=== PATIENT | male | born 1980 | race Caucasian/White ===

== ENCOUNTER 2017-05-14 16:03 | Emergency (ER) | payer MEDICAID ==
[2017-05-14] MEDS ORDERED: LORazepam 2 MG/ML INJ IVP ONE (16:28)
--- NOTE | 2017-05-14 16:28 | EDPHY ---
H & P Time Seen by Provider: 05/14/17 16:14 HPI/ROS: CHIEF COMPLAINT: "I can't see" HISTORY OF PRESENT ILLNESS: This patient is a 36 year old male with alcoholism presents for medical clearance from the [facility]. He was seen at [facility] this morning for alcohol withdrawal seizures. Once he left the ED, he starting drinking alcohol again. A family member took him to the [facility] but was asked to bring him back to an emergency department for further medical evaluation and clearance. The patient continues to repeat "I can't see", but is unable to describe this further. The difficulty with his vision began a few minutes ago. No DEUTSCH or recent head injury. REVIEW OF SYSTEMS: Constitutional: No fever, no chills Eyes: No visual changes ENT: No sore throat Respiratory: No cough, no shortness of breath Cardiac: No chest pain Gastrointestinal: No nausea, no vomiting, no abdominal pain Genitourinary: No hematuria, no dysuria Musculoskeletal: No leg pain or swelling Skin: No rash Neurological: No headache, no weakness Psychiatric: No depression Past Medical/Surgical History: Alcohol abuse, withdrawal seizures. Social History: Current smoker. Smoking Status: Current some day smoker Physical Exam: General Appearance: Alert, smells of alcohol Eyes: PERRL, EOMI, no conjunctival pallor or injection ENT, Mouth: Mucous membranes moist Neck: Normal inspection Respiratory: Lungs are clear to auscultation Cardiovascular: Regular rate and rhythm Gastrointestinal: Abdomen is soft and non- tender Neurological: A&O, motor 5/5, sensory intact to light touch Skin: Warm and dry, no rash Extremities: Nontender, no pedal edema Psychiatric: Mood and affect normal Constitutional: Initial Vital Signs Temperature (C) 36.5 C 05/14/17 16:03 Heart Rate 92 05/14/17 16:03 Respiratory Rate 16 05/14/17 16:03 Blood Pressure 146/100 H 05/14/17 16:03 O2 Sat (%) 92 05/14/17 16:03 O2 Delivery Mode Room Air O2 (L/minute) 4 Allergies/Adverse Reactions: No Known Allergies Allergy (Unverified 03/24/12 06:35) Home Medications: Medication Instructions Recorded ? Seizure Med Non Compliant 03/24/12 Medical Decision Making ED Course/Re-evaluation: This patient presents with concern about visual change and a concern about ongoing seizures. It quickly became apparent that this patient could actually see. He was able to stand at the bedside and urinate into a urinal. Soon thereafter, he stated that his vision had returned to baseline. I considered alternative alcohol use, such as methanol, but given the rapid resolution of visual changes, I doubt that he ingested methanol or other alcohols besides ethanol. He may have had a seizure, though no sz in the ED; no treatment given for possible sz. He was surprised to find out that his blood alcohol level was 433. We observed in the emergency department. On discharge, he was able to walk with a steady gait. He was discharged to the [facility]. Differential Diagnosis: Differential diagnosis includes though it is not limited to status epilepticus, hypoglycemia, intracranial hemorrhage, CVA, benzodiazepine withdrawal, alcohol withdrawal, epilepsy. - Data Points Laboratory Results: Laboratory Results 05/14/17 16:15 05/14/17 16:15 Medications Given: Discontinued Medications Chlordiazepoxide (Librium 25 Mg Prepack#6) 1 btl TAKEHOME EDNOW ONE Stop: 05/14/17 18:20 Last Admin: 05/14/17 22:49 Dose: Not Given Lorazepam (Ativan Injection) 1 mg IVP EDNOW ONE Stop: 05/14/17 16:29 Last Admin: 05/14/17 17:03 Dose: Not Given Departure - Departure Disposition: Home, Routine, Self-Care Clinical Impression: Alcohol intoxication Qualifiers: Complication of substance-induced condition: uncomplicated Qualified Code(s): F10.920 - Alcohol use, unspecified with intoxication, uncomplicated Condition: Good Instructions: Alcohol Intoxication (ED), Abuse of Alcohol (ED) Additional Instructions: Proceed to the [facility]. Librium dosin tablet every 6 hours as needed for alcohol withdrawal. Please refrain from abusing alcohol. Return to the emergency department immediately for fever, vomiting, confusion, headache, abdominal pain or other worsening of condition. Referrals: NONE *PRIMARY CARE P,. [Primary Care Provider] - As per Instructions Report Scribed for: Veronica Almanza Report Scribed by: Laly Null Date of Report: 05/14/17 Time of Report: 16:18 Physician Review and Approval Statement: 05/14/17 16:18 Portions of this note were transcribed by a medical records library professor. I personally performed a history, physical exam, medical decision making, and confirmed accuracy of information the transcribed note.
[2017-05-14 16:32] LABS: % IMMATURE GRANULYOCYTES 0.2 % (0.0-1.1); ABSOLUTE IMMATURE GRANULOCYTES 0.01 10^3/uL (0.00-0.10); ADD DIFF? NO; ADD MORPH? NO; ADD SCAN? NO; ATYPICAL LYMPHOCYTE FLAG 0 (0-99); FRAGMENT RBC FLAG 0 (0-99); HEMOGLOBIN 15.6 g/dL (13.7-17.5); LEFT SHIFT FLG 0 (0-99); LIPEMIA HEMOLYSIS FLAG 90 (0-99); MEAN CELL HEMOGLOBIN 31.3 pg (27.9-34.1); MEAN CELL HEMOGLOBIN CONCENTR. 35.5 g/dL (32.4-36.7); MEAN CELL VOLUME 88.4 fL (81.5-99.8); MEAN PLATELET VOLUME 10.4 fL (8.7-11.7); PLATELET CLUMPS FLAG 0 (0-99); PLATELET COUNT 226 10^3/uL (150-400); RED BLOOD CELL COUNT 4.98 10^6/uL (4.40-6.38); RED CELL DISTRIBUTION WIDTH 12.8 % (11.5-15.2)
[2017-05-14 16:38] LABS: CALCIUM 9.5 mg/dL (8.5-10.4); CARBON DIOXIDE 13 mEq/l (22-31); CHLORIDE 110 mEq/L (97-110); GLOMERULAR FILTRATION RATE > 60; GLUCOSE 157 mg/dL (70-100); SODIUM 144 mEq/L (134-144)
[2017-05-14 16:56] LABS: ANION GAP 21 mEq/L (8-16); POTASSIUM 4.1 mEq/L (3.5-5.2)
[2017-05-14 16:58] LABS: ETHANOL SERUM 433 mg/dL (0-10)
[2017-05-14 18:00] VITALS: RESP 18
[2017-05-14 18:25] VITALS: BP 152/73; PULSE 94; TEMP 98.4; O2SAT 96
[2017-05-14] MEDS: CHLORDIAZEPOXIDE 25MG PREPK#6 BTL TAKEHOME ONE ×2 (18:26→22:49)
== END 2017-05-14 18:41 | disposition home or self-care (01) ==
DX: F10.920 Alcohol use, unspecified with intoxication, uncomplicated (principal); F17.200 Nicotine dependence, unspecified, uncomplicated
CPT/HCPCS: 80305; G0480